=== PATIENT | female | born 1960 | race Caucasian/White ===

== ENCOUNTER 2017-10-07 06:38 | Inpatient (IN) ==
[2017-10-06 11:56] LABS: Blood Urea Nitrogen 16 mg/dl (6-20)
[2017-10-06 12:32] LABS: Appearance,Urine CLEAR; Bacteria,Urine FEW /hpf (0); Bilirubin,Urine NEG (NEG); Color,Urine YELLOW; Glucose,Urine (UA) NEGATIVE (NEG); Leukocyte Esterase,Urine NEG /uL (NEG); Mucus,Urine FEW /hpf (0); Protein,Urine NEG (NEG); Specific Gravity,Urine 1.009 (1.000-1.035); Urine Blood 0.2 mg/dL (<0.03); Urine RBC 0 /hpf (0-1); Urine Squamous Epithelial Cell 1 /hpf (0-4); Urine WBC 1 /hpf (0-4); Urobilinogen,Urine NEG (NEG)
[2017-10-06 12:33] LABS: Basophils # (Auto) 0.1 K/mcL (0.0-0.3); Basophils % (Auto) 0.7 % (0.0-2.0); Eosinophils # (Auto) 0.2 K/mcL (0.0-0.7); Eosinophils % (Auto) 3.1 % (0.0-7.0); Granulocytes % (Auto) 61.6 % (38.0-78.0); Lymphocytes % (Auto) 24.7 % (15.5-49.0); Mean Cell Volume 94.3 fL (80.0-100.0); Mean Corpuscular HGB Conc 33.6 g/dL (31.0-36.0); Mean Corpuscular Hemoglobin 31.7 pg (26.0-34.0); Monocytes # (Auto) 0.8 K/mcL (0.1-0.9); Monocytes % (Auto) 9.9 % (1.0-12.0); Platelet Count 373 K/mcL (140-440); RBC 4.94 M/mcL (4.00-5.20); Red Cell Distribution Width 14.3 % (11.5-14.5)
[~2017-10-07 06:38] MED LIST: IPRATROPIUM/ALBUTEROL 3 ML AMPUL.NEB NEB PRN; SCOPOLAMINE 1 PATCH PATCH TOPICAL PRN; ceFAZolin 1 GM VIAL IV SCH
[2017-10-07] MEDS ORDERED: PREGABALIN 75 MG CAPSULE PO SCH (06:45)
[2017-10-07] MEDS ORDERED: CELECOXIB 200 MG CAPSULE PO SCH (06:45)
[2017-10-07] MEDS ORDERED: oxyCODONE 10 MG TAB.ER.12H PO SCH (06:45)
[2017-10-07 07:34] LABS: Appearance,Urine HAZY; Bacteria,Urine 0 /hpf (0); Bilirubin,Urine NEG (NEG); Calcium Oxalate Crystals,Urine FEW /hpf (0); Color,Urine YELLOW; Glucose,Urine (UA) NEGATIVE (NEG); Leukocyte Esterase,Urine 25 /uL (NEG); Mucus,Urine FEW /hpf (0); Protein,Urine NEG (NEG); Specific Gravity,Urine 1.015 (1.000-1.035); Urine Blood 0.03 mg/dL (<0.03); Urine RBC 2 /hpf (0-1); Urine Squamous Epithelial Cell < 1 /hpf (0-4); Urine WBC 19 /hpf (0-4); Urobilinogen,Urine NEG (NEG)
[2017-10-07] MEDS ORDERED: CIPROFLOXACIN 400 MG/200 ML BAG IV ONE (07:45)
[2017-10-07] MEDS ORDERED: PROPOFOL 200 MG/20 ML VIAL IV ONE (09:20)
[2017-10-07] MEDS ORDERED: ONDANSETRON 4 MG/2 ML VIAL IV ONE (09:20)
[2017-10-07] MEDS ORDERED: HYDROmorphone 2 MG/ML VIAL IV ONE (09:20)
[2017-10-07] MEDS ORDERED: SUCCINYLCHOLINE 20 MG/ML ML IV ONE (09:20)
[2017-10-07] MEDS ORDERED: KETAMINE 100 MG/ML ML IV ONE (09:20)
[2017-10-07] MEDS ORDERED: TRANEXAMIC ACID 1,000 MG/10 ML VIAL IV ONE ×2 (09:20→10:44)
[2017-10-07] MEDS ORDERED: MIDAZOLAM 2 MG/2 ML VIAL IV ONE (09:20)
[2017-10-07] MEDS ORDERED: DEXAMETHASONE 10 MG/ML VIAL IV ONE (09:20)
[2017-10-07] MEDS ORDERED: PHENYLEPHRINE 10 MG/ML VIAL IV ONE (09:20)
[2017-10-07] MEDS ORDERED: GLYCOPYRROLATE 0.2 MG/ML VIAL IV ONE (09:20)
[2017-10-07] MEDS ORDERED: LIDOCAINE HCL/PF 100 MG/5 ML SYRINGE IV ONE (09:20)
[2017-10-07] MEDS ORDERED: fentaNYL 250 MCG/5 ML VIAL IV ONE (09:20)
[2017-10-07] MEDS ORDERED: NALOXONE HCL 0.4 MG/ML VIAL IV PRN (09:58)
[2017-10-07] MEDS ORDERED: MEPERIDINE 25 MG/ML SYRINGE IV PRN (09:58)
[2017-10-07] MEDS ORDERED: fentaNYL 100 MCG/2 ML VIAL IV PRN (09:58)
[2017-10-07] MEDS ORDERED: BENZOCAINE/MENTHOL 1 LOZENGE PO PRN ×2 (09:58→10:44)
[2017-10-07] MEDS ORDERED: LACTATED RINGERS 250 ML IV PRN (09:58)
[2017-10-07] MEDS ORDERED: MEPERIDINE 50 MG/ML INJECTION IM PRN (09:58)
[2017-10-07] MEDS ORDERED: ONDANSETRON 4 MG/2 ML VIAL IV PRN ×2 (09:58→10:44)
[2017-10-07] MEDS ORDERED: ACETAMINOPHEN 1,000 MG/100 ML BOTTLE IV ONE (09:58)
[2017-10-07] MEDS ORDERED: IPRATROPIUM/ALBUTEROL 3 ML AMPUL.NEB NEB PRN (09:58)
[2017-10-07] MEDS ORDERED: METHOCARBAMOL 1,000 MG/10 ML VIAL IV PRN (09:58)
[2017-10-07] MEDS ORDERED: PROMETHAZINE 25 MG/ML VIAL IM PRN (09:58)
[2017-10-07] MEDS ORDERED: FLUMAZENIL 0.1 MG/ML ML IV PRN (09:58)
[2017-10-07] MEDS ORDERED: LACTATED RINGERS 1,000 ML IV SCH (10:00)
[2017-10-07] MEDS ORDERED: FLEETS ADULT ENEMA PR PRN (10:44)
[2017-10-07] MEDS ORDERED: POLYETHYLENE GLYCOL 3350 17 GM PACKET PO PRN (10:44)
[2017-10-07] MEDS ORDERED: KETOROLAC 30 MG/ML VIAL IV PRN (10:44)
[2017-10-07] MEDS ORDERED: BISACODYL 10 MG SUPP.RECT PR PRN (10:44)
[2017-10-07] MEDS ORDERED: MAGNESIUM HYDROXIDE 30 ML ORAL.SUSP PO PRN (10:44)
--- NOTE | 2017-10-07 10:44 | Brief Operative Note ---
Date of procedure: 10/07/17 Pre-op diagnosis: Left shoulder severe DJD Post-op diagnosis: same Procedure: 1) Left total shoulder arthroplasty 2) Left biceps tenodesis Grafts/Implants: Yes (Depuy CAP 40x15, anchorpeg glenoid 40, ) Anesthesia: GLMA Findings: severe arthritis Complications: none Surgeon: Hermes Prather Supervisor [employer] Textile: Jacobo Alba Estimated blood loss (cc): 100 Specimens Removed/Pathology: none sent Condition: stable Disposition: PACU
[2017-10-07] MEDS ORDERED: BUPIVACAINE W/EPI 0.5% 50 ML VIAL IJ ONE (11:09)
[2017-10-07] MEDS: 0.9 % SODIUM CHLORIDE 1,000 ML IV SCH ×2 (12:40→22:53)
[2017-10-07] MEDS: HYDROmorphone 2 MG/ML VIAL IV PRN ×3 (12:49→22:59)
--- NOTE | 2017-10-07 12:52 | XRay Report ---
CLINICAL INFORMATION: Reason for Exam:Post-Op Total Shoulder COMPARISON: None. FINDINGS: Shoulder prostheses is anatomically aligned. No osseous abnormality. Mild acromioclavicular degeneration noted. Periarticular soft tissue swelling and gas seen as expected IMPRESSION: Negative Interpreted and Authenticated by: Jorge Burris 10/07/17
[2017-10-07] MEDS: 0.9 % SODIUM CHLORIDE 10 ML SYRINGE IV SCH ×3 (14:00→23:00)
[2017-10-07] MEDS: oxyCODONE/APAP 5/325MG TABLET PO PRN ×2 (14:09→20:28)
[2017-10-07] MEDS: GABAPENTIN 300 MG CAPSULE PO SCH ×2 (16:07→20:28)
--- NOTE | 2017-10-07 16:20 | Operative Note ---
DATE OF OPERATION: 10/07/2017 PREOPERATIVE DIAGNOSIS: Left shoulder severe osteoarthritis. POSTOPERATIVE DIAGNOSIS: Left shoulder severe osteoarthritis. PROCEDURE PERFORMED: 1. Left total shoulder arthroplasty using a DePuy Cap 40 x 15 humeral component and a size 40 Brunson Peg Glenoid. 2. Left shoulder biceps tenodesis. SURGEON: Hermes Prather M.D. UNDERWRITER MORTGAGE LOAN: Davon Alba PA-C. ANESTHESIA: General. DRAINS: None. SPECIMENS: None. COMPLICATIONS: None. BLOOD LOSS: 100 mL. POSTOPERATIVE CONDITION: Stable. INDICATIONS FOR SURGERY: This is a 57-year-old female who has had longstanding progressive worsening left shoulder pain. Radiographs showed severe [id number] osteoarthritis. FINDINGS AT SURGERY: As above. Post implantation showed satisfactory component position with posterior subluxation of 50%. PROCEDURE IN DETAIL: The patient had been seen preoperatively and informed consent had been obtained after discussion of risks and benefits of surgery. Risks including, but not limited to, bleeding; infection, possibly requiring implant removal and prolonged IV antibiotics; injury to nerves, blood vessels other surrounding structures; anesthetic risks; incomplete or no resolution of symptoms; stiffness; pain; dislocation; possibility of needing further surgery. She understood these risks and wished to proceed. Correct operative site was marked and then patient was taken to the operating room. General anesthesia was induced. She was carefully positioned in the beach chair position and pressure points carefully padded. Left shoulder and upper extremity were then carefully prepped and draped in normal sterile fashion, and a time-out was performed verifying patient name, operative site, and plan. Ioban was used to cover all skin surfaces and a standard deltopectoral incision was made with scalpel through skin and subcutaneous tissue. We continued careful blunt dissection down onto the cephalic vein. Irrisept was irrigated. We then bluntly dissected medial to the cephalic vein down onto the anterior humerus. Blunt finger dissection was used to develop the subdeltoid space and then a Ponce deltoid retractor placed. The lateral edge of the conjoined tendon was identified and blue handle retractor was placed underneath. We irrigated some more Irrisept and then we unroofed the biceps tendon with a 15 blade scalpel. Curved Ahuja scissors were used to amputate the biceps off the superior glenoid. We then used a curved osteotome to perform a lesser tuberosity osteotomy. We went ahead and placed an Ethibond traction suture around this fragment and then started releasing it at its inferior margin around the inferior humeral neck. We continued externally rotating until we dislocated the humerus out anteriorly. We then used a curved osteotome to remove osteophytes. We did expose the glenoid using a Fukuda retractor on the posterior glenoid. We removed the labrum circumferentially and then removed loose osteophyte off the inferior glenoid. We also released capsule carefully around the inferior glenoid, staying directly on bone. We did then have adequate exposure of the glenoid, so we went ahead and placed a guide pin centrally. We then used a reamer to ream until we had bone contact throughout the ambler of the reamer. We then used a central peg drill to drill our central hole. We then removed our guide pin and placed the peripheral hole drill guide. We drilled our three peripheral peg holes and then trialed, which fit well, so we went ahead and this was with a size 40 reamer. We had sized the humeral head prior to subluxing posteriorly. We then irrigated Irrisept while cement was mixed. We opened the Brunson Peg Glenoid. DBX putty 1 mL was placed in the flutes of the central peg. We then injected cement into the three peripheral holes, pressurizing with a syringe, and then we impacted the glenoid component. This was held absolutely still until cement had fully hardened. We then redislocated the humeral head out anteriorly. The size 40 drill guide for the cap was used to place a pin. We then used the 40 x 15 reamer to prepare the head, reaching bone subchondrally circumferentially. We then checked with our trial that it fully seated and then used the cruciate punch to prepare. The definitive implant was opened while we irrigated Irrisept. After a minute we pulse lavaged with saline and then the humeral component was impacted. We checked our posterior subluxation which was approximately 50%. We went ahead then and made two drill holes in the bicipital groove. A #2 FiberWire was placed through these holes and around the lesser tuberosity fragment to repair this down with a [id number] stitch. We placed several more in the rotator interval. I also used a free needle on the traction suture to do another [id number] incorporating our biceps in a soft tissue tenodesis. Once this was completed, we irrigated with more Irrisept. After a minute we pulse lavaged with saline. A #1 Vicryl was used for running stitch to close the deltopectoral interval. Final Irrisept irrigation was done, after a minute final pulse lavage, then 2-0 Monocryl was used for subcutaneous and steven for skin. Xeroform and sterile dressing were applied. Patient was then placed in an abductor immobilizer, awakened, extubated, and transferred to recovery in stable condition. DEIRDRE:haritha Job ID: [id number] Doc ID: [id number] Hermes Prather MD
[2017-10-07] MEDS: ceFAZolin 1 GM VIAL IV SCH (16:32)
[2017-10-07] MEDS: NICOTINE 14 MG PATCH TOPICAL SCH (17:12)
[2017-10-07] MEDS: DOCUSATE SODIUM 100 MG CAPSULE PO SCH (20:28)
[2017-10-07] MEDS ORDERED: SENNOSIDES 1 TABLET PO SCH (21:00)
[2017-10-07] MEDS ORDERED: AMITRIPTYLINE 25 MG TABLET PO SCH (21:00)
[2017-10-08] MEDS: ceFAZolin 1 GM VIAL IV SCH (00:35)
[2017-10-08] MEDS: oxyCODONE/APAP 5/325MG TABLET PO PRN ×4 (00:35→12:12)
[2017-10-08] MEDS: HYDROmorphone 2 MG/ML VIAL IV PRN ×2 (04:22→12:57)
[2017-10-08] MEDS: 0.9 % SODIUM CHLORIDE 10 ML SYRINGE IV SCH (04:23)
[2017-10-08] MEDS: 0.9 % SODIUM CHLORIDE 1,000 ML IV SCH (06:44)
--- NOTE | 2017-10-08 07:34 | Discharge Summary ---
Providers - Providers Patient information: Note initiated : 10/08/17 at 7:31 am Service Date, if different from initiated Date: [] Patient: Carlene Campoverde 57 y/o F admitted on 10/07/17 for Left Total Shoulder Arthroplasty. Chief Complaint: [] Discharge date: 10/08/17 Hospitalization Hospital course: Pt was admitted for a L total shoulder arthroplasty. Pt admitted on day of the procedure. Pt spent one night on the floor for IV ab, IV pain meds, and PT. Pt discharged post-op day one. will attend out-pt PT. Discharge diagnosis: L shoulder osetoarthrosis Exam - Exam Clean and dry: Yes Weight bearing status: as tolerated Ortho Discharge - TSA - Patient Instructions Diet: Regular Diet Activity: non weight bearing Total Shoulder Protocol: Leave immobilizer in place except for bathing and ROM. Abduction pillow. Continue to wear sling until seen by physician. Codman Pendulum : These exercises use momentum produced by your body to move your shoulder joint. Bend your knees and shift your weight to your front leg, then back, allowing your arm to swing in the same directions. Using the same technique, alternately shift your weight between your right and left legs, allowing your arm to swing from side to side. These exercises are also performed in counterclockwise and clockwise circular motions. Typically these exercises are performed several times per day, for a set number repetitions or minutes, such as 20 times in a row or 5 minutes at a time. Dressing Care: May shower in 2 days - Follow Up Plan Follow Up Appointments: Hermes Prather MD [Physician] - 10/23/17 10:10 am Disposition: Home, Self-Care Prognosis: Good Rehab Potential: Good Overall status at discharge: patient is progressing back to baseline - Orders For Discharge Prescriptions: Ciprofloxacin HCl [Cipro] 500 mg PO BID #14 tab HYDROcodone/APAP 10/325MG [Crumpler 10-325Mg] 1 - 2 tab PO Q4H PRN #75 tab PRN Reason: Pain Pending Studies Resuscitation Status Full Code Diet Regular Diet Start FriOct 07 1046 Amitriptyline HCl (Elavil) 150 mg PO HS [facility] Last Admin: 10/07/17 20:29 Dose: 150 mg Docusate Sodium (Colace) 100 mg PO BID [facility] Last Admin: 10/07/17 20:28 Dose: 100 mg Gabapentin (Neurontin) 600 mg PO TID [facility] Last Admin: 10/07/17 20:28 Dose: 600 mg Admin: 10/07/17 16:07 Dose: 600 mg Hydromorphone HCl (Dilaudid) 0 mg IV Q2HP PRN PRN Reason: PAIN LEVEL > 6 Last Admin: 10/08/17 04:22 Dose: 0.5 mg Admin: 10/07/17 22:59 Dose: 0.5 mg Admin: 10/07/17 16:37 Dose: 0.5 mg Admin: 10/07/17 12:49 Dose: 0.5 mg Sodium Chloride (Sodium Chloride 0.9%) 1,000 mls @ 100 mls/hr IV .Q10H [facility] Last Admin: 10/08/17 06:44 Dose: Infusion: 10/08/17 06:44 Dose: 0 mls/hr Admin: 10/07/17 22:53 Dose: Admin: 10/07/17 12:40 Dose: 100 mls/hr Ketorolac Tromethamine (Toradol) 30 mg IV Q6HP PRN PRN Reason: Pain Stop: 10/09/17 10:47 Last Admin: 10/08/17 05:08 Dose: 30 mg Nicotine (Nicoderm) 14 mg TOPICAL DAILY@1000 [facility] Last Admin: 10/07/17 17:12 Dose: 14 mg Oxycodone/Acetaminophen (Percocet 5-325 Mg) 0 tab PO Q4HP PRN PRN Reason: PAIN LEVEL 3-6 Last Admin: 10/08/17 04:23 Dose: 2 tab Admin: 10/08/17 00:35 Dose: 2 tab Admin: 10/07/17 20:28 Dose: 2 tab Admin: 10/07/17 14:09 Dose: 2 tab Senna (Senokot) 2 tab PO HS [facility] Last Admin: 10/07/17 20:28 Dose: 2 tab Sodium Chloride (Saline Flush) 10 ml IV Q8 [facility] Last Admin: 10/08/17 04:23 Dose: 10 ml Admin: 10/07/17 23:00 Dose: 10 ml Admin: 10/07/17 20:29 Dose: Not Given Admin: 10/07/17 14:00 Dose: Not Given Shift Summary 10/08/17 04:51 Shift Summary by Faheem Adams Pt has rested on & off tonight. LT shoulder immobilizer in place. She is up AMB to & from B.R. - gait stable w/o device - voiding QS - PVR scan @ 1999 was 44ml. Pt was incont XL amt urine @ 0410 - "slept too hard" - linen & gown changed - bedbath. LT shoulder dressing - C,D,I. Shoulder pain mod well controlled w/ IV dilaudid 0.5mg - last given @ 0425, & PO perc (2) - last given @ 0425. Ice pks also applied frequently. SPO2 was low 90's on 2L O2 via N/C - SPO2 on R.A. was 93% @ 0410 - no further O2 @ this time. IV RT F/A infiltrated - site D/C'd - new saline lock to her RT hand - flushed & patent. VS - WNL on R.A.. She is mostly calm - pleasant, & cooperative. Initialized on 10/08/17 04:51 - END OF NOTE
[2017-10-08] MEDS: DOCUSATE SODIUM 100 MG CAPSULE PO SCH (08:16)
[2017-10-08] MEDS: GABAPENTIN 300 MG CAPSULE PO SCH (08:17)
[2017-10-08] MEDS ORDERED: NICOTINE 14 MG PATCH TOPICAL SCH (10:00)
[2017-10-08] MEDS: NICOTINE 14 MG PATCH TOPICAL SCH (12:12)
== END 2017-10-08 12:51 | disposition home or self-care (01) | DRG 483 ==
LOC: MEDSUR 06:38
PROVIDERS: ADMIT Orthopaedic Surgery; ATTEND Orthopaedic Surgery